=== PATIENT | female | born 1960 | race Caucasian/White ===

== ENCOUNTER 2018-06-20 05:24 | Inpatient (IN) | payer BC ==
[2018-06-20] MEDS ORDERED: Ketorolac 30 MG/ML SDV IM ONE (05:54)
--- NOTE | 2018-06-20 05:59 | EDM.PDOC ---
ED HPI GENERAL MEDICAL PROBLEM - General Chief Complaint: Back Pain or Injury Stated Complaint: MUSCLE SPASM [id number] Time Seen by Provider: 06/20/18 05:56 Source of Information: Reports: Patient History Limitations: Reports: No Limitations - History of Present Illness INITIAL COMMENTS - FREE TEXT/NARRATIVE: progressive worsening of LBP over past 3 months. tonight felt worse with pain going down right leg. uncertain on how it all began thinks it came on suddenly. 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 ED EXAM,LOWER BACK PAIN/INJURY - Physical Exam Exam: See Below Exam Limited By: No Limitations General Appearance: Alert, WD/WN, Mild Distress, Moderate Distress Eye Exam: Bilateral Eye: PERRL (pupils ER @ 4mm) Ears: Hearing Grossly Normal Throat/Mouth: Normal Voice, No Airway Compromise Head: Atraumatic Neck: Non-Tender, Full Range of Motion Respiratory/Chest: No Respiratory Distress Cardiovascular: Regular Rate, Rhythm GI/Abdominal: Soft, Non-Tender Back Exam: Muscle Spasm, Paraspinal Tenderness, Other (right LB with radiculitis , gait limited to pain) Neurological: Alert, No Motor/Sensory Deficits Psychiatric: Tearful Skin Exam: Warm, Dry, Normal Color Lymphatic: No Adenopathy Course - Vital Signs Last Recorded V/S: Last Vital Signs Temp 36.9 C 06/20/18 05:31 Pulse 71 06/20/18 05:31 Resp 22 H 06/20/18 05:31 BP 165/72 H 06/20/18 05:31 Pulse Ox 99 06/20/18 05:31 - Orders/Labs/Meds Orders: Active Orders 24 hr Category Date Time Status C-REACTIVE PROTEIN [CHEM] Stat Lab 06/20/18 07:06 Ordered CBC WITH AUTO DIFF [HEME] Stat Lab 06/20/18 07:06 Ordered COMPREHENSIVE METABOLIC PN,CMP [CHEM] Stat Lab 06/20/18 07:06 Ordered UA W/MICROSCOPIC [URIN] Stat Lab 06/20/18 07:06 Ordered Orphenadrine [Norflex] Med 06/20/18 06:00 Active 60 mg IM Q12H Medication Orders Orphenadrine Citrate (Norflex) 60 mg IM Q12H ROBBI Last Admin: 06/20/18 05:58 Dose: 60 mg Meds: Medications Generic Name Dose Route Start Last Admin Trade Name Freq PRN Reason Stop Dose Admin Orphenadrine Citrate 60 mg 06/20/18 06:00 06/20/18 05:58 Norflex IM 60 mg Q12H ROBBI Administration Discontinued Medications Generic Name Dose Route Start Last Admin Trade Name Freq PRN Reason Stop Dose Admin Butorphanol Tartrate 2 mg 06/20/18 06:34 06/20/18 06:39 Stadol IM 06/20/18 06:35 2 mg ONETIME ONE Administration Ketorolac Tromethamine 30 mg 06/20/18 05:54 06/20/18 05:58 Toradol IM 06/20/18 05:55 30 mg ONETIME ONE Administration - Re-Assessments/Exams Free Text/Narrative Re-Assessment/Exam: 06/20/18 06:34 s/p IM toradol + norflex = minimal. 06/20/18 07:06 s/p stadol = minimal. case discussed with Dr Rosa who kindly admitted pt Departure - Departure Time of Disposition: 07:07 Disposition: Admitted As Inpatient 67 Condition: Good Clinical Impression: Lumbar radiculopathy, acute - Discharge Information Forms: ED Department Discharge - My Orders Last 24 Hours: My Active Orders 06/20/18 06:00 Orphenadrine [Norflex] 60 mg IM Q12H 06/20/18 07:06 C-REACTIVE PROTEIN [CHEM] Stat CBC WITH AUTO DIFF [HEME] Stat COMPREHENSIVE METABOLIC PN,CMP [CHEM] Stat UA W/MICROSCOPIC [URIN] Stat - Assessment/Plan Last 24 Hours: My Active Orders 06/20/18 06:00 Orphenadrine [Norflex] 60 mg IM Q12H 06/20/18 07:06 C-REACTIVE PROTEIN [CHEM] Stat CBC WITH AUTO DIFF [HEME] Stat COMPREHENSIVE METABOLIC PN,CMP [CHEM] Stat UA W/MICROSCOPIC [URIN] Stat
[2018-06-20] MEDS ORDERED: Butorphanol 2 MG/ML SDV IM ONE (06:34)
[2018-06-20 07:43] LABS: ANION GAP 12.9; CHLORIDE,CL 104 mmol/L (101-111); SODIUM,NA 139 mmol/L (135-145)
[2018-06-20] MEDS: Sodium Chloride 0.9% 10 ML Syringe FLUSH PRN (10:46)
[2018-06-20] MEDS: Cyclobenzaprine 10 MG Tab PO PRN ×2 (10:46→20:19)
[2018-06-20] MEDS: Enoxaparin 40 MG/0.4 ML Syringe SUBCUT SCH (10:47)
[2018-06-20] MEDS: Morphine 2 MG/ML Syringe IVPUSH PRN ×2 (10:47→22:51)
[2018-06-20] MEDS ORDERED: LORazepam 2 MG/ML Syringe IVPUSH ONE (11:38)
[2018-06-20] MEDS: predniSONE 20 MG Tab PO SCH (12:41)
[2018-06-20] MEDS: Acetaminophen/oxyCODONE 325-5 MG Tab PO PRN ×2 (12:48→20:19)
--- NOTE | 2018-06-20 13:02 | MR ---
CLINICAL HISTORY: 58-year-old female Hospital inpatient with "intractable" low back pain that radiate s to the right hip and buttock (several months but became worse yesterday) "multilevel lower lumbar d isc disease and arthritic changes of the spine" reported on CT exam 30 April 2016. SCAN TECHNIQUE: Sagittal T1/T2/T2 fat saturation and unenhanced axial T1/T2 magnetic resonance images of the lumbar spine obtained while the patient was lying supine on the [address] [employer] [place], [place]. All data archived in the PACS system for storag e, reformatting axial/sagittal/coronal planes and study. INTERPRETATION: Abnormal. 1. Signs of chronic multilevel disc degeneration, i.e., desiccation with flattening nucleus pulposus intervertebral discs L3-4, L4-5 and L5-S1 levels (associated anterior, nonclinical, herniation disc d ensity material with surrounding osteophytes). 2. Tiny scattered Schmorl's node defects several levels and dense reactive sclerosis adjacent endplat es at L5-S1 level. 3. Annular subligamentous disc "bulge" posteriorly at all 3 levels but generally capacious bony spina l canal volume. 4. *Asymmetric, intraligamentous, paracentral herniation large disc encroaching on lateral recess on the right at the L5-S1 level. NOTE: This large herniated disc fragment appears to be extruded up behind the body of L5, on the righ t (AP, lateral plain films lumbar spine recommended to confirm that this actually is the L5-S1 level) . 5. No sign of pathologic skeletal lesion, lumbar fracture or spondylolisthesis. 6. No free intracanalicular disc fragment or intracanalicular soft tissue tumor mass. No congenital n erve root cysts.
--- NOTE | 2018-06-20 14:46 | HP ---
CHIEF COMPLAINT: Low back pain, radiating to the right leg. HISTORY OF PRESENT ILLNESS: The patient is a 58-year-old lady who was admitted through the emergency room because of low back pain radiating down to her right leg. The patient mentioned that she has been having this progressive worsening of low back pain over the past 3 months, but last night, it got worse, and it was going down to her right leg. She denies any injury or trauma. She denies any fever or chills, bowel or bladder incontinence, dysuria, leg weakness, nor any other associated symptoms. In the emergency room, she was given Toradol and Norflex as well as saddle with no significant relief. Because of this, she was then admitted for further evaluation and management. PAST MEDICAL HISTORY: Unremarkable. FAMILY HISTORY: Positive for heart disease. SOCIAL HISTORY: The patient is . She is a nonsmoker. Occasional alcohol drinker. No illicit drug use. HOME MEDICATIONS: None. REVIEW OF SYSTEMS: As in HPI. The rest of the review of systems is negative. PHYSICAL EXAMINATION: General: The patient is drowsy but not in any acute distress. Vital Signs: Blood pressure is 138/51, pulse of 58, respirations of 20, temperature of 97.3, and saturation is 100%. HEENT: Normocephalic. There are pink palpebral conjunctivae. Sclerae anicteric. Neck: No JVD. No lymphadenopathy. Heart: Regular rate and rhythm. Normal S1 and S2. No gallops. No rubs. Lungs: Equal bilaterally. No crackles. No wheezing. Abdomen: Soft and nontender. No pulsatile masses. Bowel sounds positive. Extremities: Negative for any pedal edema. No calf tenderness. Straight leg raising is equivocal on the right leg. Back: Examination of the LS spine is remarkable for some mild reproducible tenderness on the right lumbar area, more near the right gluteal area. LABORATORY WORKUP: CBC unremarkable. Comp panel unremarkable. C-reactive protein is less than 0.5. ADMITTING DIAGNOSIS: Intractable low back pain with right leg sciatica. TREATMENT PLAN: The patient is going to be admitted to General Medicine floor. She will be continued on pain management. We will give her muscle relaxant. We will also put her on oral steroids. We will get an MRI of the LS spine, and we will have Physical Therapy see the patient for evaluation and management, and the rest of the management as necessary. TIESHA: 06/20/2018 08:22:16 [facility] /[id number]
[2018-06-21] MEDS: Acetaminophen/oxyCODONE 325-5 MG Tab PO PRN ×3 (05:31→18:06)
[2018-06-21] MEDS: predniSONE 20 MG Tab PO SCH (08:36)
[2018-06-21] MEDS: Enoxaparin 40 MG/0.4 ML Syringe SUBCUT SCH (08:36)
[2018-06-21] MEDS: Docusate Sodium 100 MG Cap PO PRN ×2 (08:37→19:50)
[2018-06-21] MEDS: Cyclobenzaprine 10 MG Tab PO PRN ×2 (08:46→19:43)
--- NOTE | 2018-06-21 08:48 | PN ---
DATE: 06/21/2018 SUBJECTIVE: The patient had an MRI of her LS spine yesterday; and this showed a large herniated disk fragment, appears to be extruded up behind the body of L5 on the right, and this is compatible with the patient's symptomatology. This was discussed with the patient. The patient still was complaining of spasm and low back pain yesterday afternoon, but this morning, she is slightly a little bit better. Otherwise, she denies any chest pain, palpitation, orthopnea, PND, abdominal pain, or any other complaints. OBJECTIVE: Vital Signs: Stable. Heart: Regular rate and rhythm. Normal S1 and S2. No gallops. No rubs. Lungs: Equal bilaterally. No crackles. No wheezing. Abdomen: Soft and nontender. Bowel sounds positive. Extremities: Negative for any pedal edema. No calf tenderness. Motor strength in both lower extremities, more or less equal; motor strength is 4/5 bilaterally. IMPRESSION: Right leg sciatica with abnormal MRI of the LS spine showing herniated disk on L5 on the right. We will continue with her current medication management including cyclobenzaprine and prednisone. We will continue with physical therapy, and we will see how she does. [facility] /[id number]
[2018-06-21] MEDS: Ibuprofen 400 MG Tab PO PRN ×2 (10:48→21:23)
[2018-06-21] MEDS: Morphine 2 MG/ML Syringe IVPUSH PRN ×2 (12:04→19:44)
[2018-06-21] MEDS: Sodium Chloride 0.9% 10 ML Syringe FLUSH PRN (12:05)
[2018-06-22] MEDS: Acetaminophen/oxyCODONE 325-5 MG Tab PO PRN ×4 (03:55→21:20)
[2018-06-22] MEDS: Cyclobenzaprine 10 MG Tab PO PRN ×3 (03:57→21:20)
[2018-06-22] MEDS: predniSONE 20 MG Tab PO SCH (08:05)
[2018-06-22] MEDS: Enoxaparin 40 MG/0.4 ML Syringe SUBCUT SCH (08:05)
[2018-06-22] MEDS: Morphine 2 MG/ML Syringe IVPUSH PRN ×3 (09:05→22:29)
[2018-06-22] MEDS: Docusate Sodium 100 MG Cap PO PRN ×2 (12:21→21:30)
[2018-06-22] MEDS: Sodium Chloride 0.9% 10 ML Syringe FLUSH PRN (17:57)
[2018-06-23] MEDS: Acetaminophen/oxyCODONE 325-5 MG Tab PO PRN ×2 (04:41→08:57)
[2018-06-23] MEDS: Morphine 2 MG/ML Syringe IVPUSH PRN ×2 (06:43→08:52)
--- NOTE | 2018-06-23 07:29 | PN ---
DATE: 06/22/2018 SUBJECTIVE: The patient is slowly improving. She is usually pain-free when she is laying still, but once she gets up, she still has significant spasm on her right leg. She has been getting the prednisone and Flexeril on a regular basis and still needed morphine yesterday. The patient denies though any weakness of the legs. Denies any bowel or bladder incontinence. Denies any fever, chills, or any other complaints. OBJECTIVE: Vital Signs: Blood pressure is 117/68, pulse 64, respiration of 20, temperature of 98. Heart: Regular rate and rhythm. Normal S1 and S2. No gallops. No rubs. Lungs: Equal bilaterally. No crackles. No wheezing. Abdomen: Soft and nontender. Bowel sounds positive. Extremities: Still positive for straight leg raising on the right. PLAN: We will continue with pain management and cyclobenzaprine and prednisone and physical therapy. If the patient continues to have problems despite the above regimen, then we will refer to Neurosurgery for further evaluation and management. [facility] /[id number]
[2018-06-23] MEDS: Ibuprofen 400 MG Tab PO PRN ×2 (07:47→23:03)
[2018-06-23] MEDS: Cyclobenzaprine 10 MG Tab PO PRN ×3 (07:48→20:20)
[2018-06-23] MEDS: Sodium Chloride 0.9% 10 ML Syringe FLUSH PRN (07:50)
[2018-06-23] MEDS: predniSONE 20 MG Tab PO SCH (08:58)
[2018-06-23] MEDS: Enoxaparin 40 MG/0.4 ML Syringe SUBCUT SCH (08:59)
[2018-06-23] MEDS: Docusate Sodium 100 MG Cap PO PRN (08:59)
[2018-06-23] MEDS: Acetaminophen/HYDROcodone 325-10 MG Tab PO SCH ×3 (11:07→23:40)
[2018-06-23] MEDS: Magnesium Hydroxide 400 MG/5 ML Susp 30 ML Cup PO PRN (12:53)
[2018-06-23] MEDS: Gabapentin 100 MG Cap PO SCH ×2 (13:00→20:20)
--- NOTE | 2018-06-23 14:49 | PCM.PN ---
- General Info Date of Service: 06/23/18 Subjective Update: Patient is a 58-year-old female seen on her subsequent hospitalization. Reports that the Percocet that being given to her every 4 hours as needed doesn't help that significantly for the pain, she denies drowsiness from it. She feels drowsy more from the Flexeril which is helping the muscle spasm. Reports that she's been having this chronic low back pain for over 3 months, initially at that time, she had some numbness on the ankle area and the last one week, she notes that the numbness has somehow progressed to the side part of her right leg. She denies any saddle anesthesia. She denies any changes in her bladder or bowel habits although since admission, she has been constipated. Baseline, she goes to the bathroom every other day. She denies any abdominal pain, nausea or vomiting. She has been ambulating to the bathroom to urinate and reports that pain gets aggravated some mild with ambulation. Functional Status: Reports: Tolerating Diet - Patient Data Vitals - Most Recent: Last Vital Signs Temp 97.5 F 06/23/18 14:32 Pulse 67 06/23/18 14:32 Resp 20 06/23/18 14:32 BP 119/55 L 06/23/18 14:32 Pulse Ox 96 06/23/18 14:32 Weight - Most Recent: 174 lb I&O - Last 24 Hours: Intake & Output 06/22/18 06/23/18 06/23/18 22:59 06:59 14:59 Intake Total 2110 550 480 Output Total 1350 Balance 760 550 480 Med Orders - Current: Current Medications Hydrocodone Bitart/Acetaminophen ([place] 325-10 Mg) 1 tab PO Q6HR [facility] Last Admin: 06/23/18 11:07 Dose: 1 tab Cyclobenzaprine HCl (Flexeril) 10 mg PO TID PRN PRN Reason: Muscle Spasm Last Admin: 06/23/18 07:48 Dose: 10 mg Docusate Sodium (Colace) 100 mg PO BID PRN PRN Reason: Constipation Last Admin: 06/23/18 08:59 Dose: 100 mg Enoxaparin Sodium (Lovenox) 40 mg SUBCUT DAILY [facility] Last Admin: 06/23/18 08:59 Dose: 40 mg Gabapentin (Neurontin) 100 mg PO TID [facility] Last Admin: 06/23/18 13:00 Dose: 100 mg Ibuprofen (Motrin) 400 mg PO Q6H PRN PRN Reason: Pain (mild 1-3) Last Admin: 06/23/18 07:47 Dose: 400 mg Magnesium Hydroxide (Milk Of Magnesia) 30 ml PO DAILY PRN PRN Reason: Constipation Last Admin: 06/23/18 12:53 Dose: 30 ml Morphine Sulfate (Morphine) 2 mg IVPUSH Q2H PRN PRN Reason: Pain (severe 7-10) Last Admin: 06/23/18 08:52 Dose: 2 mg Prednisone (Prednisone) 60 mg PO WITHBREAKFAST [facility] Last Admin: 06/23/18 08:58 Dose: 60 mg Sodium Chloride (Saline Flush) 10 ml FLUSH ASDIRECTED PRN PRN Reason: Keep Vein Open Last Admin: 06/23/18 07:50 Dose: 10 ml Discontinued Medications Butorphanol Tartrate (Stadol) 2 mg IM ONETIME ONE Stop: 06/20/18 06:35 Last Admin: 06/20/18 06:39 Dose: 2 mg Ketorolac Tromethamine (Toradol) 30 mg IM ONETIME ONE Stop: 06/20/18 05:55 Last Admin: 06/20/18 05:58 Dose: 30 mg Lorazepam (Ativan) 1 mg IVPUSH ONETIME ONE Stop: 06/20/18 11:39 Last Admin: 06/20/18 11:55 Dose: 1 mg Orphenadrine Citrate (Norflex) 60 mg IM Q12H [facility] Last Admin: 06/20/18 05:58 Dose: 60 mg Oxycodone/Acetaminophen (Percocet 325-5 Mg) 1 tab PO Q4H PRN PRN Reason: Pain (moderate 4-6) Last Admin: 06/23/18 08:57 Dose: 1 tab - Exam General: Alert, Oriented Cardiovascular: Regular Rate, Regular Rhythm Extremities: No Pedal Edema Skin: Warm, Intact Neurological: Other (Cessation of the right leg decreased per Patient's perception; dorsiflexion equal in both lower extremities) - Problem List Review Problem List Initiated/Reviewed/Updated: Yes - My Orders Last 24 Hours: My Active Orders 06/23/18 09:59 Magnesium Hydroxide [Milk of Magnesia] 30 ml PO DAILY PRN 06/23/18 12:00 Acetaminophen/HYDROcodone [[place] 325-10 MG] 1 tab PO Q6HR 06/23/18 14:00 Gabapentin [Neurontin] 100 mg PO TID - Assessment Assessment:: 58-year-old female with chronic low back pain and MRI showing disc herniation. We have made a referral to a neurosurgeon per patient's preference, Dr. Grande who eventually recommended outpatient follow-up. An appointment was set up for her on July 02. For now, she will continue with prednisone daily as well as Flexeril. We will increase her narcotic as tolerated, Percocet 10 mg/ 325 every 6 hours. Also add gabapentin and to monitor intolerance. Add lidocaine patch. Patient was also educated regards to his disease process and to what red flags to watch out for. Subsequently during the in the afternoon, patient also is requesting referral to a different neurosurgeon, Dr. Guevara in [place]. The family has contacted the specialist in regards to the patient's case. Until now, we are still waiting for the recommendation.
[2018-06-24] MEDS: Acetaminophen/HYDROcodone 325-10 MG Tab PO SCH ×4 (05:44→23:59)
[2018-06-24] MEDS: Cyclobenzaprine 10 MG Tab PO PRN ×2 (07:08→17:35)
[2018-06-24] MEDS: predniSONE 20 MG Tab PO SCH (07:09)
[2018-06-24] MEDS: Docusate Sodium 100 MG Cap PO PRN ×2 (08:35→21:32)
[2018-06-24] MEDS: Gabapentin 100 MG Cap PO SCH ×3 (08:36→21:32)
[2018-06-24] MEDS: Enoxaparin 40 MG/0.4 ML Syringe SUBCUT SCH (08:36)
[2018-06-24] MEDS: Sodium Chloride 0.9% 10 ML Syringe FLUSH PRN (08:40)
[2018-06-24] MEDS: Ibuprofen 400 MG Tab PO PRN ×2 (09:36→18:42)
[2018-06-24] MEDS: Morphine 2 MG/ML Syringe IVPUSH PRN ×2 (11:07→12:57)
[2018-06-24] MEDS: Lidocaine 5% 700 MG Patch TOP SCH (13:05)
[2018-06-24] MEDS ORDERED: oxyCODONE ER 10 MG TAB.ER PO ONE (15:30)
--- NOTE | 2018-06-24 17:22 | PCM.PN ---
- General Info Date of Service: 06/24/18 Subjective Update: Patient reports that the numbness has improved and now has been noticing more areas of pain. Had bowel movement. No bladder or bowel incontinence. Tolerating diet. Ambulating to the bathroom. Pain still not Controlled. Functional Status: Reports: Tolerating Diet, Ambulating - Patient Data Vitals - Most Recent: Last Vital Signs Temp 98 F 06/24/18 15:29 Pulse 77 06/24/18 15:29 Resp 20 06/24/18 15:29 BP 127/62 06/24/18 15:29 Pulse Ox 98 06/24/18 15:29 Weight - Most Recent: 174 lb I&O - Last 24 Hours: Intake & Output 06/24/18 06/24/18 06/24/18 06:59 14:59 22:59 Intake Total 500 2260 Balance 500 2260 Med Orders - Current: Current Medications Hydrocodone Bitart/Acetaminophen ([place] 325-10 Mg) 1 tab PO Q6HR [facility] Last Admin: 06/24/18 11:07 Dose: 1 tab Cyclobenzaprine HCl (Flexeril) 10 mg PO TID PRN PRN Reason: Muscle Spasm Last Admin: 06/24/18 07:08 Dose: 10 mg Docusate Sodium (Colace) 100 mg PO BID PRN PRN Reason: Constipation Last Admin: 06/24/18 08:35 Dose: 100 mg Enoxaparin Sodium (Lovenox) 40 mg SUBCUT DAILY [facility] Last Admin: 06/24/18 08:36 Dose: 40 mg Gabapentin (Neurontin) 100 mg PO TID [facility] Last Admin: 06/24/18 13:00 Dose: 100 mg Ibuprofen (Motrin) 400 mg PO Q6H PRN PRN Reason: Pain (mild 1-3) Last Admin: 06/24/18 09:36 Dose: 400 mg Lidocaine (Lidoderm 5%) 700 mg TOP Q24H [facility] Last Admin: 06/24/18 13:05 Dose: 700 mg Magnesium Hydroxide (Milk Of Magnesia) 30 ml PO DAILY PRN PRN Reason: Constipation Last Admin: 06/23/18 12:53 Dose: 30 ml Miscellaneous Information (Remove Patch) 1 ea TRDERM BEDTIME [facility] Morphine Sulfate (Morphine) 2 mg IVPUSH Q2H PRN PRN Reason: Pain (severe 7-10) Last Admin: 06/24/18 12:57 Dose: 2 mg Oxycodone HCl (Oxycontin) 10 mg PO Q12HR ROBBI Prednisone (Prednisone) 60 mg PO WITHBREAKFAST [facility] Last Admin: 06/24/18 07:09 Dose: 60 mg Sodium Chloride (Saline Flush) 10 ml FLUSH ASDIRECTED PRN PRN Reason: Keep Vein Open Last Admin: 06/24/18 08:40 Dose: 10 ml Discontinued Medications Butorphanol Tartrate (Stadol) 2 mg IM ONETIME ONE Stop: 06/20/18 06:35 Last Admin: 06/20/18 06:39 Dose: 2 mg Ketorolac Tromethamine (Toradol) 30 mg IM ONETIME ONE Stop: 06/20/18 05:55 Last Admin: 06/20/18 05:58 Dose: 30 mg Lorazepam (Ativan) 1 mg IVPUSH ONETIME ONE Stop: 06/20/18 11:39 Last Admin: 06/20/18 11:55 Dose: 1 mg Orphenadrine Citrate (Norflex) 60 mg IM Q12H [facility] Last Admin: 06/20/18 05:58 Dose: 60 mg Oxycodone HCl (Oxycontin) 10 mg PO ONETIME ONE Stop: 06/24/18 15:31 Last Admin: 06/24/18 15:26 Dose: 10 mg Oxycodone/Acetaminophen (Percocet 325-5 Mg) 1 tab PO Q4H PRN PRN Reason: Pain (moderate 4-6) Last Admin: 06/23/18 08:57 Dose: 1 tab - Exam General: Alert, Oriented Back Exam: Other (SLR on the right produces radiating pain at 30 leg elevation. ) Extremities: Normal Inspection - Problem List Review Problem List Initiated/Reviewed/Updated: Yes - My Orders Last 24 Hours: My Active Orders 06/24/18 09:00 Lidocaine 5% [Lidoderm 5%] 700 mg TOP Q24H 06/24/18 21:00 Remove Patch 1 ea TRDERM BEDTIME oxyCODONE ER [OxyCONTIN] 10 mg PO Q12HR - Assessment Assessment:: 58-year-old female with chronic low back pain and MRI showing disc herniation. We have made a referral to a neurosurgeon per patient's preference, Dr. Grande who eventually recommended outpatient follow-up. An appointment was set up for her on July 02. For now, she will continue with prednisone daily as well as Flexeril. Patient was also educated regards to his disease process and to what red flags to watch out for. The Percocet 10 mg per 325 every 6 hours completely helping with the pain. IV morphine has been helping with the pain. We will add OxyContin 10 mg twice a day scheduled. Add lidocaine patch. Have physical therapy work with her.
[2018-06-24] MEDS: Magnesium Hydroxide 400 MG/5 ML Susp 30 ML Cup PO PRN (17:37)
[2018-06-24] MEDS: oxyCODONE ER 10 MG TAB.ER PO SCH (21:33)
[2018-06-25] MEDS: Cyclobenzaprine 10 MG Tab PO PRN (01:37)
[2018-06-25] MEDS: Acetaminophen/HYDROcodone 325-10 MG Tab PO SCH ×2 (05:34→11:46)
[2018-06-25] MEDS: predniSONE 20 MG Tab PO SCH (09:31)
[2018-06-25] MEDS: oxyCODONE ER 10 MG TAB.ER PO SCH (09:32)
[2018-06-25] MEDS: Gabapentin 100 MG Cap PO SCH (09:35)
[2018-06-25] MEDS: Enoxaparin 40 MG/0.4 ML Syringe SUBCUT SCH (09:36)
[2018-06-25] MEDS: Lidocaine 5% 700 MG Patch TOP SCH (09:37)
[2018-06-25] MEDS: Magnesium Hydroxide 400 MG/5 ML Susp 30 ML Cup PO PRN (09:53)
[2018-06-25] MEDS: Docusate Sodium 100 MG Cap PO PRN (09:53)
[2018-06-25] MEDS ORDERED: Amoxicillin 500 MG Cap PO SCH (10:45)
--- NOTE | 2018-06-25 11:31 | PCM.DCSUM1 ---
Discharge Summary - Hospital Course Free Text/Narrative:: The patient is a 58-year-old female with no significant past medical history except for chronic mild lower back pain. The patient presented with excruciating low back pain that started 4 days [place] [employer]. It was sharp in nature radiating down the right lower extremity. MRI of the lumbar spine was obtained and it showed evidence of disc herniation at L5. Patient was managed conservatively with steroid, pain medications, physical and occupational therapy. She was tolerating physical therapy poorly because of severe pain. She was having trouble ambulating. Conservative management has been unsuccessful and the patient will be transferred to a higher level of care for consideration of surgical options. Patient is in agreement with that. She was found to have urinary tract infection. Urine culture grew Streptococcus agalactia and the patient was started on amoxicillin. final diagnoses: L5 discontinuation Radiculopathy Intractable low back pain. Diagnosis: Stroke: No - Discharge Data Discharge Date: 06/25/18 Discharge Disposition: DC/Tfer to Acute Hospital 02 Condition: Good - Patient Summary/Data Consults: Consultations 06/20/18 08:31 Consult to Physical Therapy [PT Evaluation and Treatment] [CONS] Routine - Patient Instructions Diet: Heart Healthy Diet, Usual Diet as Tolerated Activity: As Tolerated Driving: Do Not Drive - Discharge Plan Home Medications: Home Meds Ibuprofen [Advil] 600 mg PO Q4H PRN 06/20/18 [History] Acetaminophen/HYDROcodone [[place] 325-10 MG] 1 tab PO Q6HR tablet 06/25/18 [Rx] Cyclobenzaprine [Flexeril] 10 mg PO TID PRN tablet 06/25/18 [Rx] Docusate Sodium [Colace] 100 mg PO BID PRN cap 06/25/18 [Rx] Enoxaparin [Lovenox] 40 mg SUBCUT DAILY syringe 06/25/18 [Rx] Lidocaine 5% [Lidoderm 5%] 700 mg TOP Q24H patch 06/25/18 [Rx] Magnesium Hydroxide [Milk of Magnesia] 30 ml PO DAILY PRN cup 06/25/18 [Rx] Morphine 2 mg IVPUSH Q2H PRN syringe 06/25/18 [Rx] Remove Patch 1 ea TRDERM BEDTIME each 06/25/18 [Rx] Sodium Chloride 0.9% [Saline Flush] 10 ml FLUSH ASDIRECTED PRN syringe [Rx] oxyCODONE ER [OxyCONTIN] 10 mg PO Q12HR tab.er 06/25/18 [Rx] predniSONE 60 mg PO WITHBREAKFAST tablet 06/25/18 [Rx] Forms: ED Department Discharge Referrals: PCP,Unobtain [Ordering Only Provider] - - Review of Systems General: Reports: No Symptoms HEENT: Reports: No Symptoms Pulmonary: Reports: No Symptoms Musculoskeletal: Reports: Other (excruciating low back pain) - Patient Data Vitals - Most Recent: Last Vital Signs Temp 36.9 C 06/25/18 08:23 Pulse 68 06/25/18 08:23 Resp 20 06/25/18 08:23 BP 133/65 06/25/18 08:23 Pulse Ox 98 06/25/18 08:23 Weight - Most Recent: 78.925 kg I&O - Last 24 hours: Intake & Output 06/24/18 06/25/18 06/25/18 22:59 06:59 14:59 Intake Total [phone] Balance [id number] [place] Results - Last 24 hrs: Microbiology 06/22/18 08:35 Urine Culture - Final Urine, Clean Catch Streptococcus Agalactiae Grp B Med Orders - Current: Current Medications Hydrocodone Bitart/Acetaminophen ([place] 325-10 Mg) 1 tab PO Q6HR [facility] Last Admin: 06/25/18 05:34 Dose: 1 tab Amoxicillin (Amoxil) 500 mg PO Q8H [facility] Cyclobenzaprine HCl (Flexeril) 10 mg PO TID PRN PRN Reason: Muscle Spasm Last Admin: 06/25/18 01:37 Dose: 10 mg Docusate Sodium (Colace) 100 mg PO BID PRN PRN Reason: Constipation Last Admin: 06/25/18 09:53 Dose: 100 mg Enoxaparin Sodium (Lovenox) 40 mg SUBCUT DAILY [facility] Last Admin: 06/25/18 09:36 Dose: 40 mg Gabapentin (Neurontin) 100 mg PO TID [facility] Last Admin: 06/25/18 09:35 Dose: 100 mg Ibuprofen (Motrin) 400 mg PO Q6H PRN PRN Reason: Pain (mild 1-3) Last Admin: 06/24/18 18:42 Dose: 400 mg Lidocaine (Lidoderm 5%) 700 mg TOP Q24H [facility] Last Admin: 06/25/18 09:37 Dose: 700 mg Magnesium Hydroxide (Milk Of Magnesia) 30 ml PO DAILY PRN PRN Reason: Constipation Last Admin: 06/25/18 09:53 Dose: 30 ml Miscellaneous Information (Remove Patch) 1 ea TRDERM BEDTIME [facility] Last Admin: 06/24/18 21:40 Dose: 1 ea Morphine Sulfate (Morphine) 2 mg IVPUSH Q2H PRN PRN Reason: Pain (severe 7-10) Last Admin: 06/24/18 12:57 Dose: 2 mg Oxycodone HCl (Oxycontin) 10 mg PO Q12HR [facility] Last Admin: 06/25/18 09:32 Dose: 10 mg Prednisone (Prednisone) 60 mg PO WITHBREAKFAST [facility] Last Admin: 06/25/18 09:31 Dose: 60 mg Sodium Chloride (Saline Flush) 10 ml FLUSH ASDIRECTED PRN PRN Reason: Keep Vein Open Last Admin: 06/24/18 08:40 Dose: 10 ml Discontinued Medications Butorphanol Tartrate (Stadol) 2 mg IM ONETIME ONE Stop: 06/20/18 06:35 Last Admin: 06/20/18 06:39 Dose: 2 mg Ketorolac Tromethamine (Toradol) 30 mg IM ONETIME ONE Stop: 06/20/18 05:55 Last Admin: 06/20/18 05:58 Dose: 30 mg Lorazepam (Ativan) 1 mg IVPUSH ONETIME ONE Stop: 06/20/18 11:39 Last Admin: 06/20/18 11:55 Dose: 1 mg Orphenadrine Citrate (Norflex) 60 mg IM Q12H [facility] Last Admin: 06/20/18 05:58 Dose: 60 mg Oxycodone HCl (Oxycontin) 10 mg PO ONETIME ONE Stop: 06/24/18 15:31 Last Admin: 06/24/18 15:26 Dose: 10 mg Oxycodone/Acetaminophen (Percocet 325-5 Mg) 1 tab PO Q4H PRN PRN Reason: Pain (moderate 4-6) Last Admin: 06/23/18 08:57 Dose: 1 tab - Exam General: Reports: Alert, Oriented HEENT: Reports: Pupils Equal, Pupils Reactive, EOMI, Mucous Membr. Moist/Senath Lungs: Reports: Clear to Auscultation, Normal Respiratory Effort Cardiovascular: Reports: Regular Rate, Regular Rhythm
[2018-06-25] MEDS: Morphine 2 MG/ML Syringe IVPUSH PRN (12:50)
== END 2018-06-25 13:15 | DRG 347 ==
LOC: DL.ED 05:24 → DL.MS 07:47 → UNDOADMIN 07:47 → DL.MS 08:23
PROVIDERS: ADMIT Internal Medicine; ATTEND Internal Medicine
DX: M51.16 Intervertebral disc disorders with radiculopathy, lumbar region (principal); N39.0 Urinary tract infection, site not specified; B95.4 Other streptococcus as the cause of diseases classified elsewhere; Z82.49 Family history of ischemic heart disease and other diseases of the circulatory system
CPT/HCPCS: 36415; 72148; 80053; 81001; 85025; 86140; 87086; 87088; 87186; 96372; 97162-GP; 99284; A9270-GY; J0595; J1650; J1885; J2060; J2270; J2360; J7050

== ENCOUNTER 2023-04-23 14:36 | Emergency (ER) | payer BC ==
[2023-04-23] MEDS ORDERED: Diphtheria,Pertussis(Acell),Tetanus Vaccine 0.5 ML Syringe IM ONE (14:47)
[2023-04-23] MEDS ORDERED: Bacitracin Oint 1 GM U/D Packet TOP ONE (15:09)
== END 2023-04-23 15:31 | disposition home or self-care (01) ==
LOC: DL.ED 14:36
DX: S51.831A Puncture wound without foreign body of right forearm, initial encounter (principal); Z88.5 Allergy status to narcotic agent; Z88.1 Allergy status to other antibiotic agents; Z23 Encounter for immunization; W54.0XXA Bitten by dog, initial encounter
CPT/HCPCS: 12001; 90471; 90715; 99282; A9270